=== PATIENT | female | born 1985 | race Caucasian/White ===

== ENCOUNTER → 2017-12-29 | Outpatient (CLI) | payer OTHER ==
--- NOTE | 2017-12-29 16:16 | RAD ---
Left foot, 3 views, 12/29/2017: HISTORY: Foot pain No fracture or dislocation is identified. No significant arthritic change is evident. There is mild subcutaneous edema. IMPRESSION: No acute bony abnormality is detected. Electronically signed by: Kaleb Bello MD (12/29/2017 4:13 PM) [facility]
== END | disposition home or self-care (01) ==
LOC: RAD 12:38
PROVIDERS: ATTEND Family Medicine
DX: M79.672 Pain in left foot (principal); R60.0 Localized edema
CPT/HCPCS: 73630

== ENCOUNTER → 2018-11-29 | Outpatient (CLI) | payer OTHER ==
--- NOTE | 2018-11-29 18:10 | RAD ---
EXAM: Bilateral hand and wrist DATE: 11/29/2018 1:28 PM INDICATIONS: Bilateral hand pain COMPARISON: No prior FINDINGS: PA, AP, oblique and lateral views of the hand and wrist bilaterally show normal symmetric bone density. Regional joint spaces are preserved. Negative degenerative changes. Negative erosive type changes. Negative periarticular soft tissue calcifications or chondrocalcinosis. Negative focal soft tissue swelling. IMPRESSION: No radiographic findings of inflammatory or erosive arthropathy. No evidence of acute fracture or dislocation. Electronically signed by: Anjel Quinones MD (11/29/2018 6:07 PM) [id number]
--- NOTE | 2018-11-29 18:11 | RAD ---
EXAM: AP, oblique and lateral views of both feet DATE: 11/29/2018 12:00 AM INDICATION: COMPARISON: No Prior FINDINGS: Mild bilateral hallux valgus. No evidence of acute fracture or dislocation. Joint spaces are preserved without significant degenerative/proliferative change. No ankle joint effusion. IMPRESSION: 1. Bilateral hallux valgus. 2. No evidence of acute fracture or dislocation. Electronically signed by: Anjel Quinones MD (11/29/2018 6:08 PM) [id number]
== END | disposition home or self-care (01) ==
LOC: RAD 13:44
PROVIDERS: ATTEND Registered Nurse
DX: M20.12 Hallux valgus (acquired), left foot (principal); M20.11 Hallux valgus (acquired), right foot
CPT/HCPCS: 73130; 73630

== ENCOUNTER → 2020-02-25 | Outpatient (CLI) | payer OTHER | LOC: LAB 14:52 | PROVIDERS: ATTEND Physician Assistant | DX: R05 Cough (principal); Z20.828 Contact with and (suspected) exposure to other viral communicable diseases | CPT/HCPCS: U0003 ==

== ENCOUNTER 2020-09-26 14:39 | Emergency (ER) | payer OTHER ==
[~2020-09-26] VITALS: Ht 162.6 cm; Wt 70.0 kg
[2020-09-26 14:39] VITALS: BP 145/90
[2020-09-26] MEDS ORDERED: KETOROLAC 60 MG/2 ML VIAL. IM ONE (15:00)
[2020-09-26] MEDS ORDERED: CYCLOBENZAPRINE 10 MG TABLET. PO ONE (15:00)
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
[2020-09-26] MEDS ORDERED: CYCL5TAB PO (16:55)
== END 2020-09-26 17:00 | disposition home or self-care (01) ==
LOC: ER 14:39
DX: S16.1XXA Strain of muscle, fascia and tendon at neck level, initial encounter (principal); Y04.2XXA Assault by strike against or bumped into by another person, initial encounter; Y93.89 Activity, other specified; Y92.89 Other specified places as the place of occurrence of the external cause; Y99.8 Other external cause status
CPT/HCPCS: 72040; 81025; 96372; 99283; J1885

== ENCOUNTER 2021-04-23 19:26 | Emergency (ER) | payer OTHER ==
[~2021-04-23] VITALS: Ht 162.6 cm; Wt 81.4 kg
[~2021-04-23 19:26] MED LIST: CYCL5TAB PO
[2021-04-23 19:40] VITALS: BP 151/90
[2021-04-23] MEDS ORDERED: KETOROLAC 60 MG/2 ML VIAL. IM ONE ×2 (20:00)
[2021-04-23] MEDS ORDERED: LIDOCAINE 2% 20 ML VIAL. INJ ONE (20:00)
[2021-04-23] MEDS ORDERED: DIPHTH,PERTUSS(ACELL),TET TOX 0.5 ML DISP.SYRIN. VAX IM ONE ×2 (20:00)
--- NOTE | 2021-04-23 20:21 | PHYS DOC ---
Past History Additional Past Medical Histor: back pain (RODRIGUEZ TA) Past Surgical History: Tonsillectomy (RODRIGUEZ TA) Alcohol Use: Rarely (RODRIGUEZ TA) General Adult EDM: Chief Complaint: FOREIGN BODY HPI: HPI: Patient is a 35 year old female who presents with right foot pain. Patient states that 4 days ago, she stepped on a toothpick that went almost entirely into her foot inferior to the webspace between digits 1 and 2 at an angle such that the toothpick entered dorsally toward the heel. When the patient pulled out her toothpick, she noticed that approximately one third of the toothpick was missing. She saw her primary care doctor, who advised Epson salt soaks and a to pical antibiotic ointment. Over the past few days, she has developed swelling and redness on the dorsal aspect of the foot superior to the toothpick entrance wound. Patient denies fever, chills, paresthesias. (RODRIGUEZ TA) Review of Systems: Review of Systems: ROS negative or noncontributory except as mentioned in HPI. (RODRIGUEZ TA) Current Medications: Current Meds: Current Medications Medications (Trade) Dose Ordered Sig/[place] Start Time Stop Time Status Last Admin Dose Admin Diphtheria/ Tetanus/Acell Pertussis (Boostrix) 0.5 ml STK-MED ONCE 04/23/21 20:00 04/23/21 20:00 DC Ketorolac Tromethamine (Toradol Im) 60 mg STK-MED ONCE 04/23/21 20:00 04/23/21 20:00 DC Lidocaine HCl (Lidocaine 2%) 5 ml 1X ONCE 04/23/21 20:00 04/23/21 20:01 DC 04/23/21 20:05 5 ML (RODRIGUEZ TA) Allergies: Allergies: Allergies Coded Allergies Type Severity Reaction Last Updated Verified No Known Drug Allergies 09/26/20 No (RODRIGUEZ TA) Physical Exam: PE: Constitutional: Well developed, well nourished, no acute distress, non-toxic appearance. HENT: Normocephalic, atraumatic, bilateral external ears normal. Eyes: EOMI, conjunctiva normal, no discharge. Neck: Normal range of motion, no stridor. Skin: Area of erythema and swelling just proximal to digits 1 through 3 on the right foot extending distally and inferiorly around the ball of the foot. Skin otherwise warm, dry, no rash. Extremities: Right drier tender naphthalene to palpation along digits 1 through 3 and just proximal to the digits. No cyanosis, no clubbing, ROM intact, no edema. Neurologic: Alert and oriented x4, no focal deficits noted. (RODRIGUEZ TA) Current Patient Data: Vital Signs: Vital Signs Date Time Temp Pulse Resp B/P (MAP) Pulse Ox O2 Delivery O2 Flow Rate FiO2 04/23/21 19:40 97.9 83 18 151/90 (110) 100 Room Air (RODRIGUEZ TA) Radiology/Procedures: Radiology/Procedures: PROCEDURE: FOOT RIGHT 3V Exam: Right foot 3 views INDICATION: Retained foreign body TECHNIQUE: Frontal, lateral oblique views of the right foot Comparisons: None FINDINGS: Bone mineralization is normal. No acute or healed fractures. Soft tissues are unremarkable. Joint spaces are well-maintained. IMPRESSION: No acute osseous abnormality. No radiopaque foreign body identified. Electronically signed by: Heidi Palacios MD (04/23/2021 8:27 PM) [facility] (RODRIGUEZ TA) Heart Score: C/O Chest Pain: No (RODRIGUEZ TA) Course & Med Decision Making: Course & Med Decision Making Pertinent Labs and Imaging studies reviewed. (See chart for details) Patient is a 35-year-old female who presents with concern for retained foreign body in her right foot. Foreign body is a toothpick. Plain films do not show radiopaque foreign body. Dr. Emanuel, attending physician in the department, attempted to retrieve toothpick. Area was cleansed with Betadine. Patient was locally anesthetized with 10 mL 2% lidocaine surrounding the entrance wound extending dorsally towards the heel. This was done using punch biopsy and then mosquito hemostat and attempt to retrieve and remove the end of the toothpick. Tissue with eviden ce of infection was retrieved, however no foreign body. Wound was dressed with gauze. Patient was given wound care instructions and supportive treatment measures. He was given strict return precautions. Antibiotics will be as prescribed. Patient understands and is agreeable to discharge plan. (RODRIGUEZ TA) Dragon Disclaimer: Dragon Disclaimer: This electronic medical record was generated, in whole or in part, using a voice recognition dictation system. (RODRIGUEZ TA) Departure Departure: Impression: Primary Impression: Cellulitis of right foot Additional Impression: Puncture wound of foot, right Qualified Codes: S91.331A - Puncture wound without foreign body, right foot, initial encounter Disposition: HOME / SELF CARE / HOMELESS Condition: STABLE Referrals: PAULETTE HAMILTON MD (PCP) Patient Instructions: Puncture Wound, [id number] Additional Instructions: EMERGENCY DEPARTMENT GENERAL DISCHARGE INSTRUCTIONS Thank you for coming to [facility] (ED) today and trusting us with you care. We trust that you had a positive experience in our Emergency Department. If you wish to speak to the department management, you may call the director at [phone]. YOUR FOLLOW UP INSTRUCTIONS ARE FOLLOWS: 1. Follow up with your primary care doctor. If you do not have a primary doctor, please ask for a resource list of physicians or clinics that may be able to assist you with follow up care. 2. The emergency provider has interpreted your imaging studies, if any were ordered. The radiology electronic imaging system operator also reviewed them. If there is a change in the findings, you will be notified in 48 hours when at all possible. 3. If a lab test or culture has been done, your results will be reviewed and you will be notified if you need a change in treatment. 4. Follow instructions verbalized to you and refer to the printouts if needed. ADDITIONAL INSTRUCTIONS AND INFORMATION: 1. Your care today has been supervised by a physician who is specially trained in emergency care. Many problems require more than one evaluation for a complete diagnosis and treatment. We recommend that you schedule your follow up appointment as recommended to ensure complete treatment of you illness or injury. If you are unable to obtain follow up care and continue to have a problem, or if your condition worsens, we recommend that you return to the ED. 2. We are not able to safely determine your condition over the phone nor are we able to give sound medical advice over the phone. For these safety reasons, if you call for medical advice we will ask you to come to the ED for further evaluation. 3. If you have any questions regarding these discharge instructions please call the ED at [phone]. SAFETY INFORMATION: In the interest of safety, wellness, and injury prevention; we encourage you to wear your seat belt, if you smoke; quite smoking, and we encourage family to use a protective helmet for bicycling and other sporting events that present an increased risk for head injury. IF YOUR SYMPTOMS WORSEN OR NEW SYMPTOMS DEVELOP, OR YOU HAVE CONCERNS ABOUT YOUR CONDITION; OR IF YOUR CONDITION WORSENS WHILE YOU ARE WAITING FOR YOUR FOLLOW UP APPOINTMENT; EITHER CONTACT YOUR PRIMARY CARE DOCTOR, THE PHYSICIAN WHOSE NAME AND NUMBER YOU WERE GIVEN, OR RETURN TO THE ED IMMEDIATELY. Scripts Ibuprofen (IBUPROFEN) 600 Mg Tablet 600 MG PO PRN Q6-8HRS PRN for PAIN, #20 TAB Prov: RODRIGUEZ TA 04/23/21 Sulfamethoxazole/Trimethoprim (BACTRIM DS TABLET) 1 Each Tablet 1 TAB PO BID for puncture wound for 10 Days, #20 TAB 0 Refills Prov: RODRIGUEZ TA 04/23/21 Dragon Disclaimer This chart was dictated in whole or in part using Voice Recognition software in a busy, high-work load, and often noisy Emergency Department environment. It may contain unintended and wholly unrecognized errors or omissions. (NICO EMANUEL MD) Attending Signature Attending Signature I have participated in the care of this patient and I have reviewed and agree with all pertinent clinical information above including history, exam, and recommendations. (NICO EMANUEL MD) RODRIGUEZ TA Apr 23, 2021 20:21 NICO EMANUEL MD Apr 27, 2021 02:36
--- NOTE | 2021-04-23 20:29 | RAD ---
Exam: Right foot 3 views INDICATION: Retained foreign body TECHNIQUE: Frontal, lateral oblique views of the right foot Comparisons: None FINDINGS: Bone mineralization is normal. No acute or healed fractures. Soft tissues are unremarkable. Joint spa gladys are well-maintained. IMPRESSION: No acute osseous abnormality. No radiopaque foreign body identified. Electronically signed by: Heidi Palacios MD (04/23/2021 8:27 PM) [facility]
[2021-04-23] MEDS ORDERED: SULF1TAB24 PO (20:53)
[2021-04-23] MEDS ORDERED: IBUP600T16 PO (20:56)
== END 2021-04-23 21:13 | disposition home or self-care (01) ==
LOC: ER 19:26
DX: S91.341A Puncture wound with foreign body, right foot, initial encounter (principal); L03.115 Cellulitis of right lower limb; W22.8XXA Striking against or struck by other objects, initial encounter; Y93.89 Activity, other specified; Y92.89 Other specified places as the place of occurrence of the external cause; Y99.8 Other external cause status
CPT/HCPCS: 73630; 90471; 90715; 96372; 99284; J1885; J2001